=== PATIENT | female | born 1995 | race American Indian/Alaskan Native ===

== ENCOUNTER 2016-05-19 17:33 | Inpatient (IN) | payer MEDICAID ==
[2016-05-19] MEDS ORDERED: BRETHINE IVP PRN (18:03)
[2016-05-19] MEDS ORDERED: BRETHINE SUB-Q PRN (18:03)
[2016-05-19] MEDS ORDERED: POLYCILLIN/NS 2 GM/100 ML 2 GM/100 ML BAG IV ONE (18:03)
[2016-05-19] MEDS ORDERED: ePHEDrine SULFATE IV PRN (18:03)
[2016-05-19] MEDS ORDERED: NARCAN 0.4 MG/1 ML IV PRN (18:03)
[2016-05-19] MEDS ORDERED: ZOFRAN IV PRN (18:03)
[2016-05-19] MEDS ORDERED: MINERAL OIL PO PRN (18:03)
[2016-05-19] MEDS ORDERED: XYLOCAINE 2% INFILTRATI ONE (18:03)
[2016-05-19] MEDS ORDERED: SUBLIMAZE IV PRN (18:03)
[2016-05-19] MEDS ORDERED: STADOL IV PRN (18:03)
[2016-05-19 18:54] LABS: Hematocrit 31.2 % (30.3-42.9); Hemoglobin 10.4 gm/dl (10.1-14.3); Mean Corpuscular HGB Conc 33 % (30-34); Mean Corpuscular Hemoglobin 30 pg (28-32); Mean Corpuscular Volume 89 fl (79-97); Platelet Count 337 K/mm3 (140-440); Red Blood Count 3.51 M/mm3 (3.65-5.03); Red Cell Distribution Width 13.4 % (13.2-15.2); White Blood Count 12.8 K/mm3 (4.5-11.0)
[2016-05-19] MEDS ORDERED: PITOCin/NS 30 UNIT/500ML 30 UNITS/500 ML BAG IV SCH (19:00)
[2016-05-19] MEDS ORDERED: PITOCin/NS 20 UNIT/1000ML DRIP 20 UNITS/1,000 ML BAG IV SCH (19:00)
[2016-05-19] MEDS: LACTATED RINGERS 1,000 ML IV SCH (19:15)
[2016-05-19] MEDS: PITOCin/NS 30 UNIT/500ML 30 UNITS/500 ML BAG IV SCH (19:17)
--- NOTE | 2016-05-19 19:22 | History and Physical Report ---
History of Present Illness Date of examination: 05/19/16 Date of admission: 05/19/16 17:35 Chief complaint: leaking fluid History of present illness: Pt is a 21 year old -Danish female BLANE 06/15/16 at 36w1d who presents with rupture of membranes around 1700 PM. She reports irregular contractions, and denies vaginal bleeding. She has had limited care at [facility] since 28 wks with only two visits complicated by left breast mass that was evaluated by a breast specialist and has since resolved per pt, anemia on iron sulfate, E. Coli cystitis treated with Macrobid, Trichomonas with Flagyl prescribed on 04/21/16. She is GBS unknown. Past History Past Medical History: no pertinent history Past Surgical History: no surgical history FAMILY INDEPENDENCE CASE MANAGER History: trichomonas (treated 04/21/16) Family/Genetic History: diabetes, hypertension, cancer Social history: no significant social history, smoking, other (THC use ) - Obstetrical History Expected Date of Delivery: 06/15/16 Actual Gestation: 36 Week(s) 1 Day(s) : 2 Para: 0 Hx # Term Pregnancies: 0 Number of Pregnancies: 0 Spontaneous Abortions: 1 Induced : 0 Number of Living Children: 0 Medications and Allergies Allergies Allergy/AdvReac Type Severity Reaction Status Date / Time No Known Allergies Allergy Verified 07/17/13 16:20 Home Medications Medication Instructions Recorded Confirmed Last Taken Type Vit#96/Ferrous Fum/FA 1 each PO QDAY #30 tablet 06/08/13 07/17/1307/15 Rx [ Tablet] Nitrofurantoin Hardy/M-Cryst 100 mg PO Q12HR #14 capsule 07/17/13 Unknown Rx [Macrobid] metroNIDAZOLE [Flagyl] 500 mg PO BID #20 tablet 07/17/13 Unknown Rx Active Meds: Active Medications Butorphanol Tartrate (Stadol) 2 mg IV Q2H PRN PRN Reason: Pain , Severe (7-10) Ephedrine Sulfate (Ephedrine Sulfate) 10 mg IV Q2M PRN PRN Reason: Hypotension Stop: 05/20/16 18:02 Fentanyl (Sublimaze) 100 mcg IV Q2H PRN PRN Reason: Labor Pain Ampicillin Sodium (Polycillin/Ns 1 Gm/50 Ml) 1 gm in 50 mls @ 100 mls/hr IV Q4HR MARITZA PRN Reason: Protocol Lactated Ringer's (Lactated Ringers) 1,000 mls @ 125 mls/hr IV DIRECT MARITZA Oxytocin/Sodium Chloride (Pitocin/Ns 20 Unit/1000ml Drip) 20 units in 1,000 mls @ 125 mls/hr IV DIRECT MARITZA Oxytocin/Sodium Chloride (Pitocin/Ns 30 Unit/500ml) 30 units in 500 mls @ 4 mls /hr IV TITR MARITZA PRN Reason: Protocol Mineral Oil (Mineral Oil) 30 ml PO QHS PRN PRN Reason: Constipation Naloxone HCl (Narcan 0.4 Mg/1 Ml) 0.1 mg IV Q2MIN PRN PRN Reason: Res Rate </= 8 or 02 SAT < 92% Ondansetron HCl (Zofran) 4 mg IV Q8H PRN PRN Reason: Nausea And Vomiting Review of Systems All systems: negative - Vital Signs Vital signs: Vital Signs Pulse BP 70 126/67 05/19/16 17:43 05/19/16 17:43 Temp Pulse Resp BP Pulse Ox 99.0 F 70 18 126/67 05/19/16 18:34 05/19/16 17:43 05/19/16 18:34 05/19/16 17:43 - Physical Exam Breasts: Positive: deferred Cardiovascular: Regular rate Lungs: Positive: Clear to auscultation Abdomen: Positive: soft (gravid ) Uterus: Positive: enlarged (gravid ) Extremities: Positive: normal - Obstetrical FHR: category 2 Uterine Contraction Monitor Mode: External Cervical Dilatation: 3 (per RN ) Uterine Contraction Pattern: Irregular Uterine Tone Measurement Phase: Resting Uterine Contraction Intensity: Mild Results Result Diagrams: 05/19/16 18:12 Abnormal lab results 05/19/16 Range/Units 18:12 WBC 12.8 H (4.5-11.0) K/mm3 RBC 3.51 L (3.65-5.03) M/mm3 All other labs normal. Assessment and Plan A: IUP at 36w1d PPROM Limited care Tobacco use Marijuana use H/o Trichomonas with Flagyl Rx on 04/21/16 P: Admit to labor and delivery. Pitocin induction. GBS prophylaxis. Monitor clinical status.
[2016-05-19] MEDS: POLYCILLIN/NS 1 GM/50 ML 1 GM/50 ML BAG IV SCH (23:47)
--- NOTE | 2016-05-20 00:58 | Anesthesia Consultation ---
Anesthesia Consult and Med Hx Date of service: 05/20/16 - Airway Anesthetic Teeth Evaluation: Good ROM Head & Neck: Adequate Mental/Hyoid Distance: Adequate Mallampati Class: Class II Intubation Access Assessment: Good - Pulmonary Exam CTA: Yes - Cardiac Exam Cardiac Exam: No Murmur - Pre-Operative Health Status ASA Pre-Surgery Classification: ASA2 Proposed Anesthetic Plan: Epidural - Pulmonary Hx Asthma: No COPD: No Hx Pneumonia: No - Cardiovascular System Hx Hypertension: No - Central Nervous System Hx Seizures: No Hx Psychiatric Problems: No - Endocrine Hx Renal Disease: No Hx End Stage Renal Disease: No Hx Hypothyroidism: No Hx Hyperthyroidism: No - Hematic Hx Anemia: Yes Hx Sickle Cell Disease: No - Other Systems Hx Alcohol Use: No
[2016-05-20] MEDS ORDERED: NARCAN 2 MG/2 ML IV PRN (00:59)
[2016-05-20] MEDS ORDERED: ePHEDrine SULFATE IV PRN (00:59)
[2016-05-20] MEDS: fentaNYL-BUPIV 2 MCG/ML-0.125% 200 MCG/100 ML BAG EPIDURAL SCH ×2 (01:15→08:25)
[2016-05-20] MEDS: LACTATED RINGERS 1,000 ML IV SCH ×2 (02:09→02:26)
[2016-05-20] MEDS: POLYCILLIN/NS 1 GM/50 ML 1 GM/50 ML BAG IV SCH ×2 (03:49→07:44)
[2016-05-20] MEDS: PITOCin/NS 30 UNIT/500ML 30 UNITS/500 ML BAG IV SCH ×2 (08:03→08:33)
[2016-05-20] MEDS ORDERED: XYLOCAINE MPF 2% ONE ×2 (08:14)
--- NOTE | 2016-05-20 09:22 | Procedure Note ---
OB Delivery Note - Delivery Date of Delivery: 05/20/16 (4-5oz female @ 0846) Surgeon: KINSEY HUFFMAN Estimated blood loss: 100cc - Vaginal Delivery presentation: vertex Delivery position: OA Intrapartum events: labor-<37 weeks, PROM->1hr before delivery, other( please specify) (limited, isolated late care) Delivery induction: oxytocin Delivery monitor: external FHT, external uterine Route of delivery: Delivery placenta: spontaneous Delivery cord: 3 umbilical vessels Episiotomy: none Delivery laceration: vaginal side wall (bleeding, repaired with 3.[address] under epidural anethesia) Anesthesia: epidural - Infant A at 1 minute: 8 at 5 minutes: 9 Infant Gender: Female (Progressed to delivery of viable female. Spont lusty cry. Infant placed skin to skin. Bulb suctioned for thick mucus, dusky. NICU team called and @ BS. Infant stable but low temp. Spont. placenta, cord blood collected. Placenta to pathology. Repair of laceration as noted. Limited care no SHANNON for Trich or GBS done, but adequate treatment prior to delivery.)
[2016-05-20] MEDS ORDERED: NORCO 5/325 PO PRN (10:00)
[2016-05-20] MEDS ORDERED: DERMOPLAST TP PRN (10:00)
[2016-05-20] MEDS ORDERED: ZOFRAN IV PRN (10:00)
[2016-05-20] MEDS ORDERED: PHENERGAN PR PRN (10:00)
[2016-05-20] MEDS ORDERED: DULCOLAX PR PRN (10:00)
[2016-05-20] MEDS ORDERED: BENADRYL PO PRN (10:00)
[2016-05-20] MEDS ORDERED: PHENERGAN PO PRN (10:00)
[2016-05-20] MEDS ORDERED: TYLENOL PO PRN ×2 (10:00)
[2016-05-20] MEDS ORDERED: TUCKS PAD TP PRN (10:00)
[2016-05-20] MEDS ORDERED: SODIUM CHLORIDE FLUSH SYRINGE 10 ML IV PRN (10:00)
[2016-05-20] MEDS ORDERED: LANSINOH TP PRN (10:00)
[2016-05-20] MEDS: MOTRIN PO SCH ×2 (11:49→18:29)
[2016-05-20 16:49] LABS: Urine Drugs of Abuse Note Disclamer
[2016-05-20 21:26] LABS: Hematocrit 27.4 % (30.3-42.9); Hemoglobin 8.9 gm/dl (10.1-14.3)
[2016-05-20] MEDS ORDERED: MILK OF MAGNESIA PO PRN (22:00)
[2016-05-21] MEDS: MOTRIN PO SCH ×2 (05:30)
[2016-05-21] MEDS ORDERED: BOOSTRIX IM ONE (06:00)
--- NOTE | 2016-05-21 08:47 | Progress Note ---
Assessment and Plan A/P PPD#1 doing well bottle feeding VSSO+ bleeding decreased nexplanon for control anemia on iron consider d/c home tomorrow Subjective - Subjective Date of service: 05/21/16 Principal diagnosis: s/p at 36 weeks Patient reports: appetite normal, voiding normally, pain well controlled, ambulating normally : doing well, bottle feeding Objective - Vital Signs Latest vital signs: Vital Signs Temp Pulse Pulse Resp BP BP Pulse Ox 05/21/16 00:00 98.1 F 62 20 138/63 05/20/16 17:35 98 F 53 L 18 120/66 05/20/16 11:25 98.7 F 80 20 110/70 05/20/16 10:06 69 99 05/20/16 10:02 59 L 131/83 05/20/16 10:01 65 100 05/20/16 09:56 68 100 05/20/16 09:51 62 100 05/20/16 09:47 62 135/87 05/20/16 09:46 62 100 05/20/16 09:41 71 100 05/20/16 09:36 64 100 05/20/16 09:33 70 129/79 05/20/16 09:31 63 100 05/20/16 09:26 65 100 05/20/16 09:21 67 100 05/20/16 09:18 86 128/85 05/20/16 09:16 71 100 05/20/16 09:11 70 100 05/20/16 09:06 66 100 05/20/16 09:02 65 127/82 05/20/16 09:01 80 99 05/20/16 08:56 76 99 05/20/16 08:51 82 100 05/20/16 08:49 90 140/92 05/20/16 08:46 92 H 40 L Intake and Output 05/20/16 05/21/16 05/21/16 22:59 06:59 14:59 Intake Total 600 360 Balance 600 360 Intake: Oral 600 360 Other: Total, Intake Amount 240 240 # Voids Void 1 1 - Exam Breasts: Present: normal Cardiovascular: Present: Regular rate, Normal S1, Normal S2 Lungs: Present: Clear to auscultation, Normal air movement Abdomen: Present: normal appearance, soft, normal bowel sounds Vulva: both: normal Uterus: Present: normal, firm, fundal height below umbilicus (4cm) Extremities: Present: normal Deep Tendon Reflex Grade: Normal +2 Incision: Present: normal - Labs Labs: Abnormal lab results 05/20/16 Range/Units 20:11 Hgb 8.9 L (10.1-14.3) gm/dl Hct 27.4 L (30.3-42.9) %
--- NOTE | 2016-05-21 08:49 | Discharge Summary ---
Providers - Providers Date of Admission: 05/19/16 17:35 Attending physician: DE RYDER 05/20/16 15:17 Consult to Case Management [CONS] Routine Services Needed at Discharge: Demolition Engineer Notified:: Meri Eng Phone number called:: [phone] Was contact made?: Yes If yes, spoke with:: Meri Time called:: 15:18 Comment:: will be in to consult with patient Additional Physician Instructions: mom had limited care Primary care physician: DE RYDER Hospitalization Reason for admission: active labor, IUP - Delivery: Episiotomy: none Laceration: none Incision: normal complications: none Discharge diagnosis: delivery [place] baby: female Condition at discharge: Good Disposition: DISCHARGED TO HOME OR SELFCARE Plan - Discharge Medications Prescriptions: HYDROcodone/APAP 5-325 [[place] 5-325 mg TAB] 1 each PO Q6HR PRN #20 tablet PRN Reason: Pain - Provider Discharge Summary Activity: routine, no sex for 6 weeks, no heavy lifting 4 weeks, no strenuous exercise Additional instructions: [] Smoking cessation referral if applicable(refer to patient education folder for contact #) [] Refer to [facility] Booklet Call your doctor immediately for: * Fever > 100.5 * Heavy vaginal bleeding ( >1 pad per hour) * Severe persistent headache * Shortness of breath * Reddened, hot, painful area to leg or breast * Drainage or odor from incision. * Keep incision clean and dry at all times and follow doctor's instructions regarding bathing/showering - Follow up plan Follow up: DE RYDER MD [Primary Care Provider] - 7 Days
--- NOTE | 2016-05-21 09:52 | Progress Note ---
Subjective Date of service: 05/21/16 Principal diagnosis: s/p at 36 weeks Interval history: patient seen post delivery day 1 - very satisfied with epidural, ambulating well. Objective - Constitutional Vitals: Vital Signs - 12hr 05/21/16 05/21/16 00:00 09:04 Temperature 98.1 F 98.5 F Pulse Rate [ 62 66 From Monitor] Respiratory 20 20 Rate Blood Pressure 138/63 147/83 [Right Arm] - Labs CBC & Chem 7: 05/20/16 20:11 Labs: Abnormal lab results 05/20/16 Range/Units 20:11 Hgb 8.9 L (10.1-14.3) gm/dl Hct 27.4 L (30.3-42.9) %
[2016-05-21] MEDS ORDERED: M-M-R II VACCINE SUB-Q ONE (11:00)
[2016-05-22] MEDS: MOTRIN PO SCH ×3 (00:25→14:44)
--- NOTE | 2016-05-22 16:48 | Discharge Summary ---
Providers - Providers Date of Admission: 05/19/16 17:35 Date of discharge: 05/22/16 Attending physician: DE RYDER 05/20/16 15:17 Consult to Case Management [CONS] Routine Services Needed at Discharge: Ammonia Box Operator Notified:: Meri Eng Phone number called:: [phone] Was contact made?: Yes If yes, spoke with:: Meri Time called:: 15:18 Comment:: will be in to consult with patient Additional Physician Instructions: mom had limited care Primary care physician: DE RYDER Hospitalization Reason for admission: rupture of membranes, IUP at term Delivery: Episiotomy: none Laceration: vaginal side wall Discharge diagnosis: IUP at term delivered baby: female Condition at discharge: Good Disposition: DISCHARGED TO HOME OR SELFCARE Plan - Discharge Medications Prescriptions: HYDROcodone/APAP 5-325 [[place] 5-325 mg TAB] 1 each PO Q6HR PRN #20 tablet PRN Reason: Pain - Provider Discharge Summary Activity: routine, no sex for 6 weeks, no heavy lifting 4 weeks, no strenuous exercise Instructions: routine Additional instructions: [] Smoking cessation referral if applicable(refer to patient education folder for contact #) [] Refer to [facility] Booklet Call your doctor immediately for: * Fever > 100.5 * Heavy vaginal bleeding ( >1 pad per hour) * Severe persistent headache * Shortness of breath * Reddened, hot, painful area to leg or breast * Drainage or odor from incision. * Keep incision clean and dry at all times and follow doctor's instructions regarding bathing/showering - Follow up plan Follow up: KINSEY HUFFMAN CNM [Advanced Practice Nurse] - (rto 4 weeks )
[2016-05-22] MEDS ORDERED: DEPO-PROVERA (CONTRACEPTION) IM ONE (19:43)
[2016-05-22 21:09] VITALS: BP 138/80
== END 2016-05-22 20:30 | disposition home or self-care (01) | DRG 775 ==
LOC: TRG 17:33 → LD 17:35 → OB 05-20 11:15
PROVIDERS: ADMIT Obstetrics & Gynecology; ATTEND Obstetrics & Gynecology
PROC: 10E0XZZ Delivery of Products of Conception, External Approach (ICD-10-PCS; principal; 2016-05-20)
PROC: 0UQGXZZ Repair Vagina, External Approach (ICD-10-PCS; 2016-05-20)
PROC: 3E033VJ Introduction of Other Hormone into Peripheral Vein, Percutaneous Approach (ICD-10-PCS; 2016-05-20)
PROC: 3E0S3CZ (ICD-10-PCS; 2016-05-20)
PROC: 00HU33Z Insertion of Infusion Device into Spinal Canal, Percutaneous Approach (ICD-10-PCS; 2016-05-20)
DX: O42.913 Preterm premature rupture of membranes, unspecified as to length of time between rupture and onset of labor, third trimester (principal); O71.4 Obstetric high vaginal laceration alone; O99.02 Anemia complicating childbirth; D64.9 Anemia, unspecified; O99.334 Smoking (tobacco) complicating childbirth; Z3A.36 36 weeks gestation of pregnancy; Z37.0 Single live birth; F12.90 Cannabis use, unspecified, uncomplicated; O09.30 Supervision of pregnancy with insufficient antenatal care, unspecified trimester; O99.320 Drug use complicating pregnancy, unspecified trimester; O98.319 Other infections with a predominantly sexual mode of transmission complicating pregnancy, unspecified trimester; A59.9 Trichomoniasis, unspecified
CPT/HCPCS: 36415; 80307; 85014; 85018; 85027; 86850; 86900; 86901; 88307; 99211; G0463; J0290; J0595; J1050; J2405; J2590; J3010; J7120

== ENCOUNTER 2019-12-08 17:03 | Outpatient (CLI) | payer MEDICAID ==
[2019-12-08] MEDS ORDERED: ACETAMINOPHEN 325 MG TAB ONE (17:32)
[2019-12-08] MEDS ORDERED: ACETAMINOPHEN 325 MG TAB PO ONE (17:33)
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
[2019-12-08 22:25] VITALS: BP 112/65
== END 2019-12-08 22:35 | disposition home or self-care (01) ==
LOC: APU 17:03 → ED 17:03 → APU 18:28 → ED 18:28 → APU 18:28 → EDSTATUS 18:48 → APU 22:35
PROVIDERS: ATTEND Obstetrics & Gynecology
DX: O26.892 Other specified pregnancy related conditions, second trimester (principal); V89.2XXA Person injured in unspecified motor-vehicle accident, traffic, initial encounter; Y93.89 Activity, other specified; Y92.89 Other specified places as the place of occurrence of the external cause; Y99.8 Other external cause status; Z3A.28 28 weeks gestation of pregnancy
CPT/HCPCS: 59025

== ENCOUNTER 2020-02-22 08:30 | Inpatient (IN) | payer MEDICAID ==
[2020-02-22] MEDS ORDERED: LIDOCAINE (2%) 20 MG/1 ML VIAL 20 ML MDV INFILTRATI NR (09:15)
[2020-02-22] MEDS ORDERED: AMPICILLIN/NS 2 GM/100 ML 2 GM/100 ML BAG IV ONE (09:15)
[2020-02-22] MEDS ORDERED: TERBUTALINE 1 MG/1 ML INJ SUB-Q PRN (09:15)
--- NOTE | 2020-02-22 09:39 | History and Physical Report ---
History of Present Illness Date of examination: 02/22/20 Date of admission: 02/22/2020 Chief complaint: SROM History of present illness: 25yo, @ 39.2 wks, initiated care with [facility] at 27.6 wks gestation. Her has been complicated by late entry to [facility], + Trichomonas SHANNON negative - 02/05/20), +UTI, +GBS status, Anemia, pericardial effusion, hx of PTD, SGA per [facility] (11%tile), varicella non-immune and Vit D deficiency. She presents to [facility] with reports of "my water broke at 0730 this morning". Reports +FM. Denies any VB. Labs: O+, antibody negative; PAP smear normal; rubella immune; VDRL non-reactive; HBsAg negative; HIV negative; GC/Chlamydia negative; HSVII negative; 1 hr gtt - 85; GBS positive. 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 denies: smoking, alcohol abuse, prescription drug abuse, IV drug use - Obstetrical History Expected Date of Delivery: 02/27/20 Actual Gestation: 39 Week(s) 2 Day(s) : 3 Para: 1 Hx # Term Pregnancies: 0 Number of Pregnancies: 1 Spontaneous Abortions: 1 Induced : 0 Number of Living Children: 1 #1 Infant Gender: Female year: 2[age][birth year] Birthweight: 1.956 kg Method of Delivery: Vaginal Gestational age at delivery: 34 Complications: none Medications and Allergies Allergies Allergy/AdvReac Type Severity Reaction Status Date / Time mushroom Allergy Hives Verified 02/22/20 09:37 Home Medications Medication Instructions Recorded Confirmed Last Taken Type Vits96/Iron Fum/Folic 1 each PO QDAY #30 tablet 06/08/13 05/20/16 07/15/13 Rx [ Tablet] Nitrofurantoin [place]/M-Cryst 100 mg PO Q12HR #14 capsule 07/17/13 05/20/16 Unknown Rx [Macrobid] metroNIDAZOLE [Flagyl] 500 mg PO BID #20 tablet 07/17/13 05/20/16 Unknown Rx HYDROcodone/APAP 5-325 [Ayden 1 each PO Q6HR PRN #20 tablet 05/21/16 Unknown Rx 5-325 mg TAB] Ibuprofen [Motrin 600 MG tab] 600 mg PO Q6H tablet 05/21/16 Unknown Rx Active Meds: Active Medications Butorphanol Tartrate (Stadol) 2 mg IV Q2H PRN PRN Reason: Pain , Severe (7-10) Ephedrine Sulfate (Ephedrine Sulfate) 10 mg IV Q2M PRN PRN Reason: Hypotension Fentanyl (Sublimaze) 100 mcg IV Q2H PRN PRN Reason: Pain,Severe (7-10) LABOR PAIN Lactated Ringer's (Lactated Ringers) 1,000 mls @ 125 mls/hr IV DIRECT MARITZA Oxytocin/Sodium Chloride (Pitocin/Ns 30 Unit/500ml) 30 units in 500 mls @ 40 mls/hr IV TITR MARITZA; Protocol Ampicillin Sodium (Ampicillin/Ns 2 Gm/100 Ml) 2 gm in 100 mls @ 100 mls/hr IV ONCE ONE; Protocol Stop: 02/22/20 10:14 Ampicillin Sodium (Ampicillin/Ns 1 Gm/50 Ml) 1 gm in 50 mls @ 100 mls/hr IV Q4H MARITZA; Protocol Lidocaine (Xylocaine 2%) 20 ml INFILTRATI ONCE NR Stop: 02/22/20 13:00 Mineral Oil (Mineral Oil) 30 ml PO QHS PRN PRN Reason: Constipation Terbutaline Sulfate (Brethine) 0.25 mg SUB-Q ONCE PRN PRN Reason: Hyperstimulation/Hypertonicity Stop: 02/22/20 23:00 Review of Systems All systems: negative Genitourinary: leakage of fluid (0730 this morning) - Vital Signs Vital signs: Vital Signs Temp Resp 97.8 F 17 02/22/20 08:57 02/22/20 08:57 Temp Pulse Resp BP Pulse Ox 97.8 F 76 17 123/73 02/22/20 08:57 02/22/20 09:09 02/22/20 08:57 02/22/20 09:09 - Physical Exam Breasts: Positive: normal Cardiovascular: Regular rate Lungs: Positive: Normal air movement Abdomen: Positive: other (gravid) Vagina: Positive: other (clear fluids) Uterus: Positive: enlarged (S=D) Extremities: Positive: normal Deep Tendon Reflex Grade: Normal +2 - Obstetrical FHR: category 1 Uterine Contraction Monitor Mode: External Cervical Dilatation: 3.5 (vertex) Cervical Effacement Percentage: 60 station: -2 Uterine Contraction Pattern: Irregular Uterine Tone Measurement Phase: Resting Uterine Contraction Intensity: Mild Results All other labs normal. Assessment and Plan - Patient Problems (1) SROM (spontaneous rupture of membranes) Current Visit: Yes Status: Acute Plan to address problem: Admit to L&D Pain meds as desired per order Anticipate (2) Positive GBS test Current Visit: Yes Status: Acute Plan to address problem: Initiate GBS protocol
[2020-02-22 09:50] LABS: Hematocrit 30.2 % (30.3-42.9); Hemoglobin 10.3 gm/dl (10.1-14.3); Mean Corpuscular HGB Conc 34 % (30-34); Mean Corpuscular Volume 87 fl (79-97); Platelet Count 393 K/mm3 (140-440); Red Blood Count 3.48 M/mm3 (3.65-5.03); Red Cell Distribution Width 13.3 % (13.2-15.2)
[2020-02-22] MEDS: LACTATED RINGERS 1,000 ML IV SCH ×3 (09:52→22:56)
[2020-02-22] MEDS ORDERED: OXYTOCIN DRIP 30 UNITS/500 ML BAG IV SCH ×2 (10:00→14:00)
[2020-02-22] MEDS ORDERED: fentaNYL 100 MCG/2 ML INJ IV PRN (10:00)
[2020-02-22] MEDS ORDERED: BUTORPHANOL 2 MG/1 ML INJ IV PRN (10:00)
[2020-02-22] MEDS: AMPICILLIN/NS 1 GM/50 ML 1 GM/50 ML BAG IV SCH ×3 (13:00→21:30)
--- NOTE | 2020-02-22 19:21 | Event Note ---
Date: 02/22/20 Assumed care of patient. SVE /-2/bulging forebag. Small amount of meconium stained amniotic fluid seen on wil pad. Patient request epidural.
[2020-02-22] MEDS ORDERED: diphenhydrAMINE 50 MG/ML VIAL IV ONE (20:01)
[2020-02-22] MEDS ORDERED: fentaNYL-BUPIV 2 MCG/ML-0.125% 200 MCG/100 ML BAG EPIDURAL ONE (21:11)
[2020-02-22] MEDS ORDERED: ePHEDrine SULFATE 50 MG/1 ML INJ IV PRN (21:13)
[2020-02-22] MEDS ORDERED: NALOXONE 2 MG/2 ML INJ IV PRN (21:13)
--- NOTE | 2020-02-22 21:15 | Anesthesia Consultation ---
Anesthesia Consult and Med Hx Date of service: 02/22/20 - Airway Anesthetic Teeth Evaluation: Good ROM Head & Neck: Adequate Mental/Hyoid Distance: Adequate Mallampati Class: Class II Intubation Access Assessment: Probably Good - Pulmonary Exam CTA: Yes - Cardiac Exam Cardiac Exam: RRR - Pre-Operative Health Status ASA Pre-Surgery Classification: ASA2 Proposed Anesthetic Plan: Epidural - Pulmonary Hx Asthma: No COPD: No Hx Pneumonia: No - Cardiovascular System Hx Hypertension: No - Central Nervous System Hx Seizures: No Hx Psychiatric Problems: No - Endocrine Hx Renal Disease: No Hx End Stage Renal Disease: No Hx Hypothyroidism: No Hx Hyperthyroidism: No - Hematic Hx Anemia: Yes (taking iron) Hx Sickle Cell Disease: No - Other Systems Hx Alcohol Use: No
--- NOTE | 2020-02-22 21:20 | Progress Note ---
Labor Epidural - Labor Epidural Start Time: 20:59 Stop Time: 21:05 Performed by:: MATT LEAL Procedure: Patient is requesting epidural for labor pain. H&P, and labs reviewed. Procedure explained, questions answered, consent obtained. Patient in sitting position with blood pressure cuff and pulse ox on and working. Timeout performed immediately before start of procedure. Sterile betadine prep/drape. 3 mL 1% lidocaine skin wheal at L[3]-L[4]. 18-gauge Physiq epidural needle advanced to natn-mg-lqqnaswgzc with saline at [7] cm. Epidural dexmedetomidine [30] mcg administered. Epidural catheter advanced to [12] cm, negative aspiration for blood and csf, negative test dose 3 ml 1.5% lidocaine with epinephrine. Sterile steri-strips and tegaderm applied, followed by tape reinforcement. Patient tolerated procedure well.
[2020-02-22] MEDS ORDERED: fentaNYL-BUPIV 2 MCG/ML-0.125% 200 MCG/100 ML BAG EPIDURAL SCH (22:00)
[2020-02-22] MEDS ORDERED: MINERAL OIL 30 ML ORAL LIQD PO PRN (22:00)
[2020-02-22] MEDS: ePHEDrine SULFATE 50 MG/1 ML INJ IV PRN ×2 (22:01→22:05)
--- NOTE | 2020-02-23 00:22 | Event Note ---
Date: 02/23/20 SVE .
[2020-02-23] MEDS: AMPICILLIN/NS 1 GM/50 ML 1 GM/50 ML BAG IV SCH (02:04)
[2020-02-23] MEDS ORDERED: LIDOCAINE (2%) 20 MG/1 ML VIAL 20 ML MDV INFILTRATI ONE (05:30)
--- NOTE | 2020-02-23 06:45 | Procedure Note ---
OB Delivery Note - Delivery Date of Delivery: 02/23/20 Surgeon: GUILLERMO TAN Estimated blood loss: other (250 cc) - Vaginal Delivery presentation: vertex Delivery position: OA Intrapartum events: meconium Delivery induction: none Delivery augmentation: pitocin Delivery monitor: external FHT, external uterine Route of delivery: Delivery placenta: spontaneous Delivery cord: 3 umbilical vessels Episiotomy: none Delivery laceration: 1st degree Delivery repair: vicryl Anesthesia: epidural Delivery comments: Spontaneous vaginal delivery at 05:36 of liveborn female infant weighing 3.196 kg over intact perineum with apgars of 8/9. Epidural anesthesia. Meconium stained amniotic fluid. NICU present for delivery. Delivery of baby was atraumatic. Baby was vigorous at and cried right away. Baby placed skin to skin with mom immediately after delivery; baby was bulb suctioned and dried with warm towels. 3 vessel cord double clamped and cut (delayed cord clamping). Spontaneous delivery of intact placenta and membranes at 05:40 by bradley mechanism. Placenta to path due to meconium and calcifications and possible hemangiomas of placenta. EBL 250 cc. Pitocin to IV fluids after delivery of placenta. Fundus firm and midline. First degree left periurethral laceration repaired with 3-0 vicryl. No other lacerations noted. Vaginal sweep negative. Sponge count correct. Mother and baby stable in birthing room.
[2020-02-23] MEDS ORDERED: WITCH HAZEL/ GLYCERIN PAD TP PRN (07:00)
[2020-02-23] MEDS ORDERED: LANOLIN/ZINC/DIMETHICONE (LANSINOH) 7 GM TP PRN (07:00)
[2020-02-23] MEDS: IBUPROFEN 600 MG TAB PO SCH (18:30)
[2020-02-23 18:45] LABS: Hematocrit 26.6 % (30.3-42.9)
[2020-02-23] MEDS ORDERED: MAGNESIUM HYDROXIDE (MOM) ORAL LIQD UDC PO PRN (22:00)
[2020-02-23] MEDS: FERROUS SULFATE 325 MG TAB PO SCH (22:30)
[2020-02-24] MEDS: IBUPROFEN 600 MG TAB PO SCH ×3 (01:20→18:15)
[2020-02-24] MEDS: HYDROcodone/ACETAMINOPHEN 5-325 MG TAB PO PRN ×2 (02:11→22:19)
[2020-02-24] MEDS: FERROUS SULFATE 325 MG TAB PO SCH ×2 (10:57→22:11)
--- NOTE | 2020-02-24 12:57 | Post Anesthesia Evaluation ---
- Post Anesthesia Evaluation Patient Participated: Yes Airway Patent: Yes Stable Respiratory Function: Yes Nausea/Vomiting: No Temp > 96.8F: Yes Pain Manageable: Yes Adequeate Hydration: Yes Anesthesia Complications: No Block Receding Appropriately: Yes
[2020-02-24] MEDS ORDERED: BENZOCAINE/MENTHOL 20/0.5% TOP SPRAY 56 GM TP PRN (13:50)
--- NOTE | 2020-02-24 19:27 | Event Note ---
Date: 02/24/20 Came to patient's room 3 times to see patient today for exam. Each time patient's stated she "is on a walk." Patient has been started on iron supplement for anemia. Patient continues to be afebrile and vital signs are stable.
--- NOTE | 2020-02-25 07:17 | Progress Note ---
Assessment and Plan A: day 2 S/P . Anemia. P: Discharge patient home today. Discussed with patient discharge instructions and warning signs. Advised pt. to take her vitamins and iron supplements at home. Advised pt. to follow up at [facility] in 6 weeks. Subjective - Subjective Date of service: 02/25/20 Principal diagnosis: day 2 S/P Patient reports: appetite normal, voiding normally, pain well controlled, flatus, ambulating normally, no dizzy ambulation, no nauseated [place]: doing well Objective - Vital Signs Latest vital signs: Vital Signs Temp Pulse Resp BP Pulse Ox 02/25/20 02:07 98.3 F 79 20 114/65 100 02/24/20 15:51 98.0 F 80 16 133/82 99 02/24/20 07:29 98.0 F 67 16 117/79 100 Intake and Output 02/24/20 02/24/20 02/25/20 15:59 23:59 07:59 Intake Total 360 680 360 Balance 360 680 360 Intake: Oral 360 680 Intake, Free Water 360 Other: Total, Intake Amount 240 480 # Voids Void 1 1 2 - Exam Cardiovascular: Present: Regular rate Lungs: Present: Clear to auscultation Abdomen: Present: normal appearance, soft. Absent: distention, tenderness, guarding, rigidity Uterus: Present: normal, firm, fundal height below umbilicus. Absent: bogginess, tenderness Extremities: Present: normal. Absent: tenderness, edema
--- NOTE | 2020-02-25 07:19 | Discharge Summary ---
Providers - Providers Date of Admission: 02/22/20 09:42 Date of discharge: 02/25/20 Attending physician: JUANA BURNS MD Primary care physician: EASTON AVINA JR, MD Hospitalization Reason for admission: rupture of membranes Delivery: Episiotomy: none Laceration: 1st degree Other procedures: none complications: none Discharge diagnosis: IUP at term delivered baby: female Pertinent studies: Labs Hospital course: Normal hospital course. Condition at discharge: Good Disposition: DC-01 TO HOME OR SELFCARE - Discharge Diagnoses (1) Term delivered Status: Acute (2) Anemia Status: Acute Plan - Provider Discharge Summary Activity: routine, no sex for 6 weeks, no heavy lifting 4 weeks, no strenuous exercise Diet: routine Instructions: routine Additional instructions: Continue taking your vitamins and iron supplements at home. Call your doctor immediately for: * Fever > 100.5 * Heavy vaginal bleeding ( >1 pad per hour) * Severe persistent headache * Shortness of breath * Reddened, hot, painful area to leg or breast - Follow up plan Follow up: EASTON AVINA JR, MD [Primary Care Provider] - 6 Weeks
[2020-02-25] MEDS: IBUPROFEN 600 MG TAB PO SCH ×2 (10:31→15:50)
[2020-02-25] MEDS: FERROUS SULFATE 325 MG TAB PO SCH (10:31)
[2020-02-25] MEDS ORDERED: medroxyPROGESTERone ACETATE 150 MG/ML SYRINGE IM ONE (17:00)
[2020-02-25 17:16] VITALS: BP 111/46
== END 2020-02-25 17:00 | disposition home or self-care (01) | DRG 775 ==
LOC: TRG 08:30 → APU 08:31 → TRG 09:39 → LD 09:42 → OB 02-23 10:16
PROVIDERS: ADMIT Obstetrics & Gynecology; ATTEND Obstetrics & Gynecology
PROC: 3E0R3BZ Introduction of Anesthetic Agent into Spinal Canal, Percutaneous Approach (ICD-10-PCS; 2020-02-22)
PROC: 00HU33Z Insertion of Infusion Device into Spinal Canal, Percutaneous Approach (ICD-10-PCS; 2020-02-22)
PROC: 10E0XZZ Delivery of Products of Conception, External Approach (ICD-10-PCS; principal; 2020-02-23)
PROC: 0HQ9XZZ Repair Perineum Skin, External Approach (ICD-10-PCS; 2020-02-23)
DX: O42.92 Full-term premature rupture of membranes, unspecified as to length of time between rupture and onset of labor (principal); Z37.0 Single live birth; Z3A.39 39 weeks gestation of pregnancy; Z91.018 Allergy to other foods; O99.824 Streptococcus B carrier state complicating childbirth; E55.9 Vitamin D deficiency, unspecified; O77.0 Labor and delivery complicated by meconium in amniotic fluid; O70.0 First degree perineal laceration during delivery; O90.81 Anemia of the puerperium; D64.9 Anemia, unspecified; Z20.828 Contact with and (suspected) exposure to other viral communicable diseases
CPT/HCPCS: 36415; 85014; 85018; 85027; 86850; 86900; 86901; 88307; G0378; A6250; J0290; J0595; J1050; J1200; J2590; J7120; U0003

== ENCOUNTER 2021-06-05 07:49 | Inpatient (IN) | payer MEDICAID ==
--- NOTE | 2021-06-05 09:16 | History and Physical Report ---
History of Present Illness Date of examination: 06/05/21 Date of admission: 06/05/2021 Chief complaint: My water broke. History of present illness: Pt is a 26 y.o. @ 40.3 wks by stated LMP of August 26, 2021. She has had no care this . States that her water broke around 0700 am today. Past History Past Medical History: hematologic disorders (Anemia) Past Surgical History: no surgical history Family/Genetic History: diabetes, hypertension, cancer, other (Pt denied family history but reveiw of previous visit revealed family history. ) Social history: smoking (Marijuana use. Pt denies but SO states she recently used. ) - Obstetrical History Expected Date of Delivery: 06/02/21 (Based off stated LMP. ) Actual Gestation: 40 Week(s) 3 Day(s) : 4 Para: 2 Hx # Term Pregnancies: 1 Number of Pregnancies: 1 ("Delivery at 8 months") Spontaneous Abortions: 0 Induced : 1 Number of Living Children: 2 Medications and Allergies Allergies Allergy/AdvReac Type Severity Reaction Status Date / Time mushroom Allergy Hives Verified 06/05/21 08:02 Home Medications Medication Instructions Recorded Confirmed Last Taken Type Vits96/Iron Fum/Folic 1 each PO QDAY #30 tablet 06/08/13 06/05/21 02/18/20 Rx [ Tablet] Review of Systems All systems: negative - Vital Signs Vital signs: Vital Signs Pulse BP Pulse Ox 91 H 149/74 100 06/05/21 08:06 06/05/21 08:06 06/05/21 08:06 Temp Pulse Resp BP Pulse Ox 98.2 F 73 18 149/74 100 06/05/21 08:13 06/05/21 09:11 06/05/21 08:13 06/05/21 08:13 06/05/21 09:11 - Physical Exam Breasts: Positive: deferred Cardiovascular: Regular rate Lungs: Positive: Normal air movement Abdomen: Positive: normal appearance, soft Genitourinary (Female): Positive: normal external genitalia, normal perenium Vulva: both: normal Vagina: Positive: other (Fluid at vagina seen. ) Uterus: Positive: enlarged ( uterus. ) Extremities: Positive: normal - Obstetrical FHR: category 1 Uterine Contraction Monitor Mode: External Cervical Dilatation: 5 Cervical Effacement Percentage: 70 station: -2 Uterine Contraction Pattern: Regular Uterine Tone Measurement Phase: Resting Uterine Contraction Intensity: Moderate Results Result Diagrams: 06/05/21 Unknown All other labs normal. GBS UNKNOWN LABS DRAWN ON ADMISSION Assessment and Plan A: 26 y.o. @ 40.3 wks by stated LMP, no care. SROM @ 0700 for clear fluid. - Patient Problems (1) Insufficient care Current Visit: Yes Status: Acute Qualifiers: Trimester: third trimester Qualified Code(s): O09.33 - Supervision of with insufficient care, third trimester Plan to address problem: Case management consult after delivery. (2) Postmaturity , 40-42 weeks gestation Current Visit: Yes Status: Acute Plan to address problem: Admit to labor and delivery. Initiate IV. Draw labs. IV pain management: epidural. Anticipate . (3) History of marijuana use Current Visit: Yes Status: Acute Plan to address problem: Case management after delivery.
[2021-06-05] MEDS ORDERED: ONDANSETRON 4 MG/2 ML INJ IV PRN ×2 (09:17→14:50)
[2021-06-05] MEDS ORDERED: ACETAMINOPHEN 325 MG TAB PO PRN (09:17)
[2021-06-05] MEDS ORDERED: NALOXONE 0.4 MG/1 ML INJ IV PRN (09:17)
[2021-06-05] MEDS ORDERED: OXYTOCIN 10 UNIT/1 ML INJ IM PRN (09:17)
[2021-06-05] MEDS ORDERED: ePHEDrine SULFATE 50 MG/1 ML INJ IV PRN ×2 (09:17→10:49)
[2021-06-05] MEDS ORDERED: miSOPROStol 200 MCG TAB PR PRN ×2 (09:17→18:00)
[2021-06-05] MEDS ORDERED: MINERAL OIL 30 ML ORAL LIQD PO PRN (09:17)
[2021-06-05] MEDS ORDERED: CARBOPROST TROMETHAMINE 250 MCG/1 ML INJ IM PRN (09:17)
[2021-06-05] MEDS ORDERED: TERBUTALINE 1 MG/1 ML INJ SUB-Q PRN (09:17)
[2021-06-05] MEDS ORDERED: METHYLERGONOVINE MALEATE 0.2 MG/ML VIAL IM PRN (09:17)
[2021-06-05] MEDS ORDERED: LOPERAMIDE 2 MG CAP PO PRN (09:17)
[2021-06-05] MEDS ORDERED: fentaNYL 100 MCG/2 ML INJ IV PRN (09:17)
[2021-06-05] MEDS ORDERED: BUTORPHANOL 2 MG/1 ML INJ IV PRN (09:17)
[2021-06-05] MEDS ORDERED: PROMETHAZINE 25 MG TAB PO PRN ×2 (09:17→14:50)
[2021-06-05] MEDS ORDERED: LACTATED RINGERS 1,000 ML IV SCH (09:30)
[2021-06-05 09:44] LABS: Hematocrit 26.4 % (30.3-42.9); Hemoglobin 8.6 gm/dl (10.1-14.3); Mean Corpuscular HGB Conc 32 % (30-34); Mean Corpuscular Volume 84 fl (79-97); Platelet Count 405 K/mm3 (140-440); Red Blood Count 3.14 M/mm3 (3.65-5.03); Red Cell Distribution Width 15.9 % (13.2-15.2)
[2021-06-05] MEDS ORDERED: OXYTOCIN DRIP 30 UNITS/500 ML BAG IV SCH ×3 (10:00→15:00)
[2021-06-05] MEDS ORDERED: LIDOCAINE (2%) 20 MG/1 ML VIAL 20 ML MDV INFILTRATI ONE (10:00)
[2021-06-05] MEDS ORDERED: NALOXONE 2 MG/2 ML INJ IV PRN (10:49)
[2021-06-05] MEDS ORDERED: diphenhydrAMINE 50 MG/ML VIAL IV PRN (10:49)
--- NOTE | 2021-06-05 10:50 | Anesthesia Day of Surgery ---
Anesthesia Day of Surgery - Day of Surgery Patient Examined: Yes Patient H&P Reviewed: Yes Patient is NPO: Yes
--- NOTE | 2021-06-05 10:52 | Anesthesia Consultation ---
Anesthesia Consult and Med Hx Date of service: 06/05/21 - Airway Anesthetic Teeth Evaluation: Good ROM Head & Neck: Adequate Mental/Hyoid Distance: Adequate Mallampati Class: Class II Intubation Access Assessment: Good - Pre-Operative Health Status ASA Pre-Surgery Classification: ASA2 Proposed Anesthetic Plan: Epidural (General if needed) - Pulmonary Hx Asthma: No COPD: No Hx Pneumonia: No - Cardiovascular System Hx Hypertension: No - Central Nervous System Hx Seizures: No Hx Psychiatric Problems: No - Endocrine Hx Renal Disease: No Hx End Stage Renal Disease: No Hx Hypothyroidism: No Hx Hyperthyroidism: No - Hematic Hx Anemia: Yes Hx Sickle Cell Disease: No - Other Systems Hx Alcohol Use: No - Additional Comments Anesthesia Medical History Comments: [id number] Prior epidural here
[2021-06-05] MEDS ORDERED: AMPICILLIN/NS 2 GM/100 ML 2 GM/100 ML BAG IV ONE (11:00)
[2021-06-05] MEDS ORDERED: fentaNYL-BUPIV 2 MCG/ML-0.125% 200 MCG/100 ML BAG EPIDURAL SCH (11:00)
[2021-06-05] MEDS ORDERED: LIDOCAINE 1.5% /EPINEPHRINE 1:200,000 AMP (5 ML) INFILTRATI ONE (11:36)
[2021-06-05 12:44] LABS: Hematocrit 26.7 % (30.3-42.9); Hemoglobin 8.5 gm/dl (10.1-14.3); Mean Corpuscular HGB Conc 32 % (30-34); Mean Corpuscular Volume 85 fl (79-97); Platelet Count 412 K/mm3 (140-440); Red Blood Count 3.14 M/mm3 (3.65-5.03); Red Cell Distribution Width 15.8 % (13.2-15.2)
[2021-06-05 12:45] LABS: Hepatitis C Virus Antibody Non-Reactive (NonReactive)
--- NOTE | 2021-06-05 14:40 | Procedure Note ---
OB Delivery Note - Delivery Date of Delivery: 06/05/21 Director Health: BIANKA ALEJANDRO Estimated blood loss: 100cc - Vaginal Delivery presentation: vertex Delivery position: OA Intrapartum events: no care Delivery induction: none Delivery augmentation: pitocin Delivery monitor: external FHT, external uterine Route of delivery: Delivery placenta: spontaneous, other Delivery cord: 3 umbilical vessels Episiotomy: none Delivery laceration: none Anesthesia: epidural Delivery comments: of viable female . Infant to mother abdomen for skin to skin. Cord clamped. Cut by FOC. Spontaneous delivery of placenta intact, complete, 3 vessels noted. Perineum and vagina inspected, no lacerations noted. Fundus firm, minimal bleeding noted. EBL 100ml. Apgars 8,9. Weight 7-1. Instruments and sponges counted with RN X 2 and correct X2. and mother left in stable condition in care of RN. - A at 1 minute: 8 at 5 minutes: 9 Infant Gender: Female (7-1, "Majesty")
[2021-06-05] MEDS ORDERED: PROMETHAZINE 25 MG RECT SUPP PR PRN (14:50)
[2021-06-05] MEDS ORDERED: WITCH HAZEL/ GLYCERIN PAD TP PRN (14:50)
[2021-06-05] MEDS ORDERED: oxyCODONE /ACETAMINOPHEN 5-325MG TAB PO PRN (14:50)
[2021-06-05] MEDS ORDERED: LANOLIN/ZINC/DIMETHICONE (LANSINOH) 7 GM TP PRN ×2 (14:50)
[2021-06-05] MEDS ORDERED: MAGNESIUM HYDROXIDE (MOM) ORAL LIQD UDC PO PRN (14:50)
[2021-06-05] MEDS ORDERED: diphenhydrAMINE 25 MG CAP PO PRN (14:50)
[2021-06-05 15:10] LABS: Amphetamine Screen,Urine Negative; Benzodiazepines Screen,Urine Negative; Cocaine Screen,Urine Negative; Methadone Screen,Urine Negative; Opiate Screen,Urine Negative
[2021-06-05 16:01] LABS: Cannabinoid Screen,Urine Positive
[2021-06-05] MEDS: IBUPROFEN 800 MG TAB PO SCH ×2 (17:19→22:32)
[2021-06-05 18:02] LABS: Hematocrit 26.5 % (30.3-42.9); Hemoglobin 8.6 gm/dl (10.1-14.3)
--- NOTE | 2021-06-05 18:05 | Event Note ---
Date: 06/05/21 Received a call from RN that patient had some brisk bleeding when checking her fundus. Upon assessment of patient, moderate bleeding noted on peripad.No active bleeding seen. Inspected peripad that was underneath patient during bleeding episode. Large amount of bleeding and some small clots noted. Weight of peripad QBL 454ml. Methergine IM given. Will continue to monitor bleeding.
[2021-06-05 18:44] LABS: Band Neutrophils # (Manual) 0.1 K/mm3; Basophils % (Manual) 0 % (0.0-1.8); Eosinophils % (Manual) 0 % (0.0-4.3); Total Cells Counted 100
[2021-06-05 18:45] LABS: Ovalocytes 1+; Platelet Estimate Consistent w Auto
[2021-06-05] MEDS: DOCUSATE SODIUM 100 MG CAP PO SCH (22:33)
[2021-06-06] MEDS: IBUPROFEN 800 MG TAB PO SCH ×3 (03:02→16:29)
[2021-06-06] MEDS ORDERED: TETANUS,DIPH,PERTUSS(ACELL) VACCINE 0.5 ML SYRINGE IM ONE (06:00)
[2021-06-06] MEDS: FERROUS SULFATE 325 MG TAB PO SCH (10:23)
[2021-06-06] MEDS: DOCUSATE SODIUM 100 MG CAP PO SCH (10:23)
[2021-06-06] MEDS: PRENATAL VIT27-FE FUMARATE-FOLIC ACID VIT TAB PO SCH (10:23)
[2021-06-06] MEDS: ACETAMINOPHEN 500 MG TAB PO PRN ×2 (10:24→18:16)
[2021-06-06] MEDS: METHYLERGONOVINE 0.2 MG TABLET PO SCH ×2 (10:53→18:16)
--- NOTE | 2021-06-06 11:53 | Progress Note ---
Assessment and Plan VSSAF, H&H 8.5/26.7 - existing anemia. Pt reported passing large clots earlier today. Will start PO methergine d/t anemia and continue to monitor closely.. Pt resting in bed. Baby girl in bassinet. Voiced just taking morning medication. States lower ABD pain and feels weeks. Encouraged to take pain medication as presecribed and Iron supplements. Desires Depo shot at discharge and tubal ligation at PP visit. Discussed possible transfusion if becomes symptomatic and discharge planning. CHAD Phillip CNM - Patient Problems (1) (normal spontaneous vaginal delivery) Current Visit: Yes Status: Acute Plan to address problem: Continue pathway Anticipate d/c home tomorrow (2) Anemia Current Visit: No Status: Acute Qualifiers: Anemia type: iron deficiency Plan to address problem: Continue Iron supplements Monitor vaginal bleeding Monitor vitals signs Subjective - Subjective Date of service: 06/06/21 Principal diagnosis: day #1 s/p , no care Patient reports: appetite normal, voiding normally, pain well controlled, ambulating normally, no dizzy ambulation, no nauseated : doing well Objective - Vital Signs Latest vital signs: Vital Signs Temp Pulse Resp BP BP Pulse Ox Pulse Ox 06/06/21 09:45 98 06/06/21 07:34 97.9 F 67 18 121/64 100 06/06/21 04:15 98.4 F 75 16 115/67 06/06/21 00:12 98.0 F 67 18 119/62 99 06/05/21 20:30 98.0 F 58 L 14 135/81 100 06/05/21 19:40 100 06/05/21 18:08 66 121/67 100 06/05/21 18:03 72 100 06/05/21 17:58 77 100 06/05/21 17:53 73 100 06/05/21 17:52 74 132/64 06/05/21 17:48 71 100 06/05/21 17:43 69 100 06/05/21 17:38 77 100 06/05/21 17:37 76 133/65 06/05/21 17:33 69 100 06/05/21 17:28 65 100 06/05/21 17:23 71 134/63 100 06/05/21 17:18 78 100 06/05/21 17:13 63 100 06/05/21 17:08 63 100 06/05/21 17:07 66 148/87 06/05/21 17:03 62 100 06/05/21 16:58 60 100 06/05/21 16:53 59 L 100 06/05/21 16:52 56 L 128/82 06/05/21 16:48 63 100 06/05/21 16:43 61 100 06/05/21 16:38 57 L 100 06/05/21 16:37 56 L 136/84 06/05/21 16:33 56 L 100 06/05/21 16:28 56 L 100 06/05/21 16:23 56 L 100 06/05/21 16:22 56 L 139/84 06/05/21 16:18 59 L 100 06/05/21 16:13 61 100 06/05/21 16:08 55 L 100 06/05/21 16:07 56 L 137/80 06/05/21 16:03 64 100 06/05/21 15:58 69 100 06/05/21 15:53 62 100 06/05/21 15:52 61 136/78 06/05/21 15:48 61 100 06/05/21 15:43 56 L 100 06/05/21 15:42 65 91 06/05/21 15:38 60 100 06/05/21 15:37 59 L 131/73 06/05/21 15:33 64 100 06/05/21 15:28 64 83 L 06/05/21 15:23 68 119/64 100 06/05/21 15:18 66 100 06/05/21 15:13 68 100 06/05/21 15:08 63 116/66 100 06/05/21 15:05 69 92 06/05/21 15:03 59 L 100 06/05/21 14:58 62 100 06/05/21 14:54 61 94 06/05/21 14:53 66 124/82 100 06/05/21 14:48 58 L 100 06/05/21 14:43 61 100 06/05/21 14:38 57 L 100 06/05/21 14:37 59 L 120/81 06/05/21 14:33 64 100 06/05/21 14:28 68 100 06/05/21 14:23 63 134/80 100 06/05/21 14:18 65 100 06/05/21 14:13 78 100 06/05/21 14:08 65 140/93 100 06/05/21 14:03 72 100 06/05/21 13:58 65 100 06/05/21 13:54 71 129/62 06/05/21 13:53 79 100 06/05/21 13:48 63 100 06/05/21 13:43 70 100 06/05/21 13:40 62 127/64 06/05/21 13:38 66 100 06/05/21 13:33 78 100 06/05/21 13:28 68 100 06/05/21 13:23 73 135/61 100 06/05/21 13:18 70 100 06/05/21 13:13 74 100 06/05/21 13:08 71 100 06/05/21 13:03 71 100 06/05/21 12:58 79 100 06/05/21 12:54 68 131/72 06/05/21 12:53 68 100 06/05/21 12:48 66 100 06/05/21 12:43 68 100 06/05/21 12:38 66 100 06/05/21 12:37 65 121/73 06/05/21 12:33 64 100 06/05/21 12:28 75 100 06/05/21 12:23 69 127/73 100 06/05/21 12:18 64 100 06/05/21 12:13 65 100 06/05/21 12:08 66 100 06/05/21 12:07 59 L 119/67 06/05/21 12:05 73 123/70 06/05/21 12:03 70 120/70 100 06/05/21 12:01 72 125/70 06/05/21 11:59 70 121/66 06/05/21 11:58 65 100 06/05/21 11:57 58 L 119/63 06/05/21 11:55 62 127/62 06/05/21 11:53 75 115/57 100 06/05/21 11:51 66 125/62 Intake and Output 06/05/21 06/06/21 06/06/21 23:59 07:59 15:59 Intake Total 300 200 Output Total 600 200 Balance -300 0 Intake: Intake, Free Water 300 200 Output: Urine 600 200 Void 600 200 Other: Total, Output Amount 600 200 # Voids Void 1 1 - Exam Breasts: Present: normal Abdomen: Present: normal appearance, soft Uterus: Present: normal, firm, other (medium lochia noted) Extremities: Present: normal - Labs Labs: Abnormal lab results 06/05/21 06/05/21 Range/Units 17:09 Unknown RBC 3.14 L (3.65-5.03) M/mm3 Hgb 8.6 L 8.5 L (10.1-14.3) gm/dl Hct 26.5 L 26.7 L (30.3-42.9) % MCH 27 L (28-32) pg RDW 15.8 H (13.2-15.2) % Seg Neuts % (Manual) 86.0 H (40.0-70.0) % Lymphocytes % (Manual) 7.0 L (13.4-35.0) % Lymphocytes # (Manual) 0.5 L (1.2-5.4) K/mm3
[2021-06-06] MEDS: BENZOCAINE/MENTHOL 20/0.5% TOP SPRAY 56 GM TP PRN (16:30)
[2021-06-07] MEDS: IBUPROFEN 800 MG TAB PO SCH ×2 (00:42→06:22)
[2021-06-07] MEDS: DOCUSATE SODIUM 100 MG CAP PO SCH ×2 (00:42→09:41)
[2021-06-07] MEDS: BENZOCAINE/MENTHOL 20/0.5% TOP SPRAY 56 GM TP PRN (01:13)
[2021-06-07] MEDS: METHYLERGONOVINE 0.2 MG TABLET PO SCH ×3 (02:25→15:49)
[2021-06-07] MEDS ORDERED: TETANUS,DIPH,PERTUSS(ACELL) VACCINE 0.5 ML SYRINGE IM ONE (06:00)
--- NOTE | 2021-06-07 08:01 | Discharge Summary ---
Providers - Providers Date of Admission: 06/05/21 14:51 Date of discharge: 06/07/21 Attending physician: DAVID BENNETT MD 06/05/21 Consult to Case Management [CONS] Routine Services Needed at Discharge: Filter Assembler Notified:: computer input Phone number called:: [phone] Was contact made?: No Time called:: 09:36 Comment:: computer Additional Physician Instructions: No care. UDS + for marijuana. Primary care physician: DAVID BENNETT MD Hospitalization Reason for admission: Labor Condition: Good Pertinent studies: post delivery H&H 8.5/26.7, asymptomatic, anemia d/t acute blood loss Procedures: Hospital course: uncomplicated and course Disposition: HOME / SELF CARE / HOMELESS Final Discharge Diagnosis (Prints w/discharge instructions): Time spent for discharge: 25 - Discharge Diagnoses (1) (normal spontaneous vaginal delivery) Status: Acute (2) Anemia Status: Acute Qualifiers: Anemia type: iron deficiency Core Measure Documentation - Palliative Care Palliative Care/ Comfort Measures: Not Applicable - Core Measures Any of the following diagnoses?: none Exam - Constitutional Vitals: Temp Pulse Resp BP Pulse Ox 98.4 F 72 20 130/76 100 06/07/21 00:15 06/07/21 00:15 06/07/21 00:15 06/07/21 00:15 06/07/21 00:15 General appearance: Present: no acute distress - EENT ENT: hearing intact - Neck Neck: Present: supple, normal ROM - Respiratory Respiratory effort: normal - Extremities Extremities: No edema, normal color, Full ROM - Abdominal General gastrointestinal: Present: soft - Integumentary Integumentary: Present: clear, warm, dry - Psychiatric Psychiatric: appropriate mood/affect - Neurologic Neurologic: moves all extremities Plan Activity: no restrictions Diet: regular Follow up with: DAVID BENNETT MD [Primary Care Provider] - 6 Weeks (Congratulations! Please call [phone] to schedule a your visit in 6 weeks. ) Prescriptions: Ferrous Sulfate [Feosol 325 MG tab] 325 mg PO BID #60 tablet Ibuprofen [Motrin 800 MG tab] 800 mg PO Q8HR PRN #30 tablet PRN Reason: Pain
[2021-06-07] MEDS ORDERED: medroxyPROGESTERone ACETATE 150 MG/ML SYRINGE IM SCH (08:30)
[2021-06-07] MEDS: PRENATAL VIT27-FE FUMARATE-FOLIC ACID VIT TAB PO SCH (09:41)
[2021-06-07] MEDS: FERROUS SULFATE 325 MG TAB PO SCH (09:42)
[2021-06-07 16:05] VITALS: BP 133/87
== END 2021-06-07 19:20 | disposition home or self-care (01) | DRG 775 ==
LOC: TRG 07:49 → APU 07:50 → LD 08:41 → TRG 14:51 → OB 19:33
PROVIDERS: ADMIT Student in an Organized Health Care Education/Training Program; ATTEND Student in an Organized Health Care Education/Training Program
PROC: 10E0XZZ Delivery of Products of Conception, External Approach (ICD-10-PCS; principal; 2021-06-05)
PROC: 3E0R3BZ Introduction of Anesthetic Agent into Spinal Canal, Percutaneous Approach (ICD-10-PCS; 2021-06-05)
PROC: 00HU33Z Insertion of Infusion Device into Spinal Canal, Percutaneous Approach (ICD-10-PCS; 2021-06-05)
PROC: 3E0234Z Introduction of Serum, Toxoid and Vaccine into Muscle, Percutaneous Approach (ICD-10-PCS; 2021-06-07)
DX: O48.0 Post-term pregnancy (principal); Z23 Encounter for immunization; D62 Acute posthemorrhagic anemia; O99.02 Anemia complicating childbirth; D50.9 Iron deficiency anemia, unspecified; Z37.0 Single live birth; Z20.822 Contact with and (suspected) exposure to COVID-19; Z91.018 Allergy to other foods; Z3A.40 40 weeks gestation of pregnancy
CPT/HCPCS: 36415; 59025; 80307; 85007; 85014; 85018; 85025; 85027; 86592; 86706; 86762; 86803; 86850; 86900; 86901; 87806; 88307; 90471; 90715; G0378; J3490; J0290; J1050; J2210; J2590; U0003